=== PATIENT | male | born 1985 | race Caucasian/White ===

== ENCOUNTER 2017-11-19 11:56 | Emergency (ER) | payer OTHER ==
[2017-11-19] MEDS ORDERED: TORAdol 30 mg Injection IM ONE (12:11)
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
[2017-11-19] MEDS ORDERED: TORAdol 30 mg Injection ONE ×2 (12:18→12:20)
[2017-11-19 12:19] VITALS: BP 138/98; PULSE 127; O2SAT 98
== END 2017-11-19 13:14 | disposition home or self-care (01) ==
LOC: ED 11:56
DX: M54.5 Low back pain (principal); Z79.899 Other long term (current) drug therapy
CPT/HCPCS: 96372; 99284; J1885

== ENCOUNTER → 2021-06-17 | Emergency (ER) | payer OTHER ==
[2012-07-06 12:39] VITALS: BP 124/72
== END | disposition left against medical advice (07) ==
LOC: ED 20:42
DX: Z53.9 Procedure and treatment not carried out, unspecified reason (principal)

== ENCOUNTER 2022-10-06 23:54 | Emergency (ER) | payer OTHER ==
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
[2022-10-07] MEDS ORDERED: Fluor-I-Strip/Ful-Flo OP ONE ×2 (00:28→01:35)
[2022-10-07] MEDS ORDERED: TETRACAINE 0.5% STERI-UNIT SOL OP ONE (00:28)
[2022-10-07] MEDS ORDERED: Eye-Stream Solution ONE (00:28)
[2022-10-07] MEDS ORDERED: Cortisporin Eye Drops OP ONE (00:56)
[2022-10-07 01:02] VITALS: BP 135/71; PULSE 88; O2SAT 98
[2022-10-07] MEDS ORDERED: Eye-Stream Solution OP ONE (01:39)
[2022-10-07] MEDS ORDERED: TETRACAINE 0.5% STERI-UNIT SOL OP STA (01:41)
[2022-10-07] MEDS ORDERED: Cortisporin Eye Drops OP SCH (08:00)
== END 2022-10-07 01:05 | disposition home or self-care (01) ==
LOC: ED 23:54
DX: S05.01XA Injury of conjunctiva and corneal abrasion without foreign body, right eye, initial encounter (principal); W20.8XXA Other cause of strike by thrown, projected or falling object, initial encounter; Z79.891 Long term (current) use of opiate analgesic; Z79.899 Other long term (current) drug therapy; Z28.310 Unvaccinated for COVID-19; Z72.0 Tobacco use
CPT/HCPCS: 99281; A9270-GY

== ENCOUNTER 2023-01-26 19:50 | Emergency (ER) | payer SELFPAY ==
[2023-01-26 20:04] VITALS: BP 136/85; PULSE 78; O2SAT 97
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
== END 2023-01-26 20:54 | disposition home or self-care (01) ==
LOC: ED 19:50
DX: S00.36XA Insect bite (nonvenomous) of nose, initial encounter (principal); S50.861A Insect bite (nonvenomous) of right forearm, initial encounter; J34.0 Abscess, furuncle and carbuncle of nose; L03.113 Cellulitis of right upper limb; W57.XXXA Bitten or stung by nonvenomous insect and other nonvenomous arthropods, initial encounter; Z79.891 Long term (current) use of opiate analgesic; Z72.0 Tobacco use
CPT/HCPCS: 99281

== ENCOUNTER 2024-04-30 14:15 | Emergency (ER) | payer SELFPAY ==
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
[2024-04-30 14:40] VITALS: RESP 20; TEMP 98.4
[2024-04-30 15:31] VITALS: BP 147/109; PULSE 99; O2SAT 100
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
== END 2024-04-30 15:56 | disposition home or self-care (01) ==
LOC: ED 14:15
DX: Z04.1 Encounter for examination and observation following transport accident (principal); S00.83XA Contusion of other part of head, initial encounter; V89.2XXA Person injured in unspecified motor-vehicle accident, traffic, initial encounter; Z79.891 Long term (current) use of opiate analgesic; Z72.0 Tobacco use
CPT/HCPCS: 70450; 70486; 71046; 99285